=== PATIENT | male | born 1980 | race Two or more races ===

== ENCOUNTER 2024-11-05 16:33 | Emergency (ER) | payer SELFPAY | END 2024-11-05 16:57 | disposition left against medical advice (07) | LOC: ER 16:39 | DX: Z76.89 Persons encountering health services in other specified circumstances (principal); Z53.21 Procedure and treatment not carried out due to patient leaving prior to being seen by health care provider ==

== ENCOUNTER 2024-11-07 11:04 | Emergency (ER) | payer MEDICAID, OTHER ==
[~2024-11-07] VITALS: Ht 167.6 cm; Wt 65.0 kg
--- NOTE | 2024-11-07 12:43 | ED.PDOC ---
History of Present Illness HPI Comments 44-year-old male with no reported PMHx presents with a chief complaint of possible foreign body to left gluteal region x 5 days. Patient states that he may have a piece of wood splinter in his left gluteal region. Patient has a roughly 7x7cm erythematous area to the left gluteal. Chief Complaint: Foreign Body Time Seen by MD: 12:16 Primary Care Provider: NONE Reviewed Notes: Nurses Notes, Medications, Allergies Allergies: Coded Allergies: NO KNOWN ALLERGIES (Unverified , 11/07/24) Home Meds Active Scripts Naproxen (Naproxen) 500 Mg Tab, 500 MG PO [id number] PRN for 10 Days, #20 TAB 0 Refills Prov:TOMA BENSON NP 11/07/24 Cephalexin Monohydrate (Cephalexin) 500 Mg Cap, 1 CAP PO QID for 7 Days, #28 CAP 0 Refills Prov:TOMA BENSON NP 11/07/24 Sulfamethoxazole W/Trimethopri (Bactrim Ds Tablet) 1 Tab Tb, 1 TAB PO BID for 7 Days, #14 TAB 0 Refills Prov:TOMA BENSON NP 11/07/24 Information Source: Patient Mode of Arrival: Ambulatory Severity: Moderate Timing: Days Duration: Since onset Prehospital treatment: None Past Medical History PAST MEDICAL HISTORY: Denies Surgical History: Denies all surgeries Family History Family History: Reviewed,noncontributory to illness Social History Smoker: Non-Smoker Alcohol: Denies ETOH Use Drugs: Denies Drug Use Lives In: Home Constitutional: denies: chills, diaphoresis, fatigue, fever, malaise, sweats, weakness, others EENTM: denies: blurred vision, double vision, ear bleeding, ear discharge, ear drainage, ear pain, ear ringing, eye pain, eye redness, hearing loss, mouth pain, mouth swelling, nasal discharge, nose bleeding, nose congestion, nose pain, photophobia, tearing, throat pain, throat swelling, voice changes, others Respiratory: denies: cough, hemoptysis, orthopnea, SOB at rest, shortness of breath, SOB with excertion, stridor, wheezing, others Cardiovascular: denies: chest pain, dizzy spells, diaphoresis, Dyspnea on exert ion, edema, irregular heart beat, left arm pain, lightheadedness, palpitations, PND, syncope, others Gastrointestinal: denies: abdomen distended, abdominal pain, blood streaked bowels, constipated, diarrhea, dysphagia, difficulty swallowing, hematemesis, melena, nausea, poor appetite, poor fluid intake, rectal bleeding, rectal pain, vomiting, others Genitourinary: denies: burning, dysuria, flank pain, frequency, hematuria, incontinence, penile discharge, penile sore, pain, testicle pain, testicle swelling, urgency, others Neurological: denies: dizziness, fainting, headache, left sided numbness, left sided weakness, numbness, paresthesia, pre-existing deficit, right sided numbness, right sided weakness, seizure, speech problems, tingling, tremors, weakness, others Musculoskeletal: denies: back pain, gout, joint pain, joint swelling, muscle pain, muscle stiffness, neck pain, others Integumetry: reports: wounds; denies: bruises, change in color, change in hair/nails, dryness, laceration, lesions, lumps, rash, others Allergic/Immunocompromised: denies: Difficulty Healing, Frequent Infections, Hives, Itching, others Hematologic/Lymphatic: denies: anemia, blood clots, easy bleeding, easy bruising, swollen glands, others Endocrine: denies: excessive hunger, excessive sweating, excessive thirst, excessive urination, flushing, intolerance to cold, intolerance to heat, unexplained weight gain, unexplained weight loss, others Psychiatric: denies: anxiety, bipolar disorder, depression, hopeless, panic disorder, schizophrenia, sleepless, suicidal, others All Other Systems: Reviewed and Negative Physical Exam General Appearance: No Apparent Distress, Normal, Other (Round 7 x 7 cm erythematous region, TTP indurated, possible FB to midcenter left gluteal valencia on, no crepitous, drainage, or signs of streaking) HEENT: Normal ENT Inspection, Pharynx Normal, TMs Normal Neck: Full Range of Motion, Non-Tender, Normal, Normal Inspection Respiratory: Chest Non-Tender, Lungs Clear, No Accessory Muscle Use, No Respiratory Distress, Normal Breath Sounds Cardiovascular: No Edema, No JVD, No Murmur, No Gallop, Normal Peripheral Pulses, Regular Rate/Rhythm Breast Exam: Deferred Gastrointestinal: No Organomegaly, Non Tender, No Pulsatile Mass, Normal Bowel Sounds, Soft Genitalia: Deferred Pelvic: Deferred Rectal: Deferred Extremities: No calf tenderness, Normal capillary refill, Normal inspection, Normal range of motion, Non-tender, No pedal edema Musculoskeletal : Apperance: Normal 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 Was a procedure done?: No Differential Dx Considerations may include: abscess, cellulitis, erysipelas fb X-Ray, Labs, Meds, VS Vital Signs Date Time Temp Pulse Resp B/P (MAP) Pulse Ox O2 Delivery O2 Flow Rate FiO2 11/07/24 15:45 98.4 71 16 120/69 (86) 98 98.4 11/07/24 12:20 85 16 98 Room Air 11/07/24 12:20 98.1 85 16 124/72 (89) 98 98.1 11/07/24 11:22 98.1 85 16 124/72 (89) 98 98.1 Lab Test 11/07/24 12:49 Range/Units White Blood Count 12.1 H 4.4-10.8 10^3/uL Red Blood Count 4.71 4.5-5.90 10^6/uL Hemoglobin 14.7 13.5-17.5 g/dL Hematocrit 42.3 41.0-53.0 % Mean Corpuscular Volume 90.0 80.0-100.0 fL Mean Corpuscular Hemoglobin 31.2 28.0-32.0 pg Mean Corpuscular Hemoglobin Concent 34.7 32.0-36.0 g/dL Red Cell Distribution Width 14.2 11.8-14.3 % Platelet Count 241 140-450 10^3/uL Mean Platelet Volume 8.8 6.9-10.8 fL Neutrophils (%) (Auto) 79.4 37.0-80.0 % Lymphocytes (%) (Auto) 8.8 L 10.0-50.0 % Monocytes (%) (Auto) 8.7 0.0-12.0 % Eosinophils (%) (Auto) 2.8 0.0-7.0 % Basophils (%) (Auto) 0.3 0.0-2.0 % Neutrophils # (Auto) 9.6 H 1.6-8.6 10 ^3/uL Lymphocytes # (Auto) 1.1 0.4-5.4 10 ^3/uL Monocytes # (Auto) 1.0 0-1.3 10 ^3/uL Eosinophils # (Auto) 0.3 0-0.8 10 ^3/uL Basophils # (Auto) 0 0-0.2 10 ^3/uL Nucleated Red Blood Cells 0.0 % Sodium Level 139 136-145 mmol/L Potassium Level 4.1 3.5-5.1 mmol/L Chloride Level 105 98-107 mmol/L Carbon Dioxide Level 27 20-31 mmol/L Anion Gap 7 5-15 Blood Urea Nitrogen 13 9-23 mg/dL Creatinine 0.81 0.700-1.30 mg/dL Glomerular Filtration Rate Calc 112 >90 mL/min BUN/Creatinine Ratio 16.0 10.0-20.0 Serum Glucose 92 74-106 mg/dL Calcium Level 9.6 8.7-10.4 mg/dL Current Medications Medications (Trade) Dose Ordered Sig/Ellie Route Start Time Stop Time Status Last Admin Acetaminophen/ Hydrocodone Bitart ([place] 10/325MG Tab) 1 tab ONCE ONCE PO 11/07/24 13:30 11/07/24 13:31 DC 11/07/24 13:27 Ceftriaxone Sodium (Rocephin) 1,000 mg ONCE ONCE IM 11/07/24 15:00 11/07/24 15:01 DC 11/07/24 15:34 X-Ray, Labs, Meds, VS Comment 44-year-old male with no reported PMHx presents with a chief complaint of possible foreign body to left gluteal region x 5 days. Patient arrives alert and oriented, ABC's intact, afebrile, vital signs stable, saturating well in room air History and findings consistent with cellulitis. Given History, Exam, and Workup I have low suspicion for Necrotizing Fasciitis but also considered Abscess as a cause for this presentation. Labs ..ordered Imaging ordered: 1. Findings suggesting cellulitis in the subcutaneous tissues of the left gluteal tissues. 2. No drainable fluid collections. 3. No intraperitoneal masses or fluid collections. 4. All CT scans at this medical facility are performed using dose modulation techniques as appropriate to a performed exam including the following: Automated exposure control was utilized; adjustment of the MA and/or KV according to patient size; and use of iterative reconstruction technique. Ordered ABx x 1 Prescribed p.o. antibiotics for presentation of symptoms Complete course of antibiotic therapy even if symptoms improve or resolve. There should be no leftover antibiotics as this can lead to antibiotic resistant bacteria and even worse infection. Patient verbalized understanding. Potential side effects discussed with patient including abdominal pain, nausea, diarrhea. The patient was advised to return 24-48 hours for wound check. Sooner if symptoms worsen. Additional MDM Review of External, Non-ED records: External records reviewed. Discussion with independent historian (EMS, family) history obtained from the patient/parents (if applicable) at bedside Chronic conditions affecting care: None Social determinants of health affecting care: None Consideration of admission (observation or admission): I considered escalation of care to admission for this patient, however given the reassuring workup, the patient is safe for outpatient management. Time of 1ST Reevaluation: 12:46 Reevaluation 1ST: Unchanged Patient Education/Counseling: Diagnosis, Treatment, Prognosis Family Education/Counseling: No Family Present SEPSIS Sepsis Screen Date sepsis recognized/suspect: Nov 07, 2024 Time Sepsis recognized/suspect: 1122 Recent Procedure: No On Antibiotic Therapy: No Respiratory Rate >20: No Heart Rate >90: No Temp<36 C (96.8 F) or >38.3 C: No SBP <90 or MAP <65 mmHG: No New Acute Mental Status Change: No Is the patient on CPAP, BIPAP,: No Orders/Vitals/Labs Physician Orders Heplock Iv (11/07/24 ) Ct Ab Pel With Iv Con Only (11/07/24 13:35) Vital Signs Date Time Temp Pulse Resp B/P (MAP) Pulse Ox O2 Delivery O2 Flow Rate FiO2 11/07/24 15:45 98.4 71 16 120/69 (86) 98 98.4 11/07/24 12:20 85 16 98 Room Air 11/07/24 12:20 98.1 85 16 124/72 (89) 98 98.1 11/07/24 11:22 98.1 85 16 124/72 (89) 98 98.1 Laboratory Tests Test 11/07/24 12:49 White Blood Count 12.1 10^3/uL (4.4-10.8) H Departure 1 Departure Time of Disposition: 15:35 Impression: Primary Impression: Cellulitis Qualified Codes: L03.317 - Cellulitis of buttock Disposition: HOME / SELF CARE / HOMELESS Condition: Fair e-Prescriptions Naproxen (Naproxen) 500 Mg Tab 500 MG PO [id number] PRN for 10 Days, #20 TAB 0 Refills Prov: TOMA BENSON NP 11/07/24 Cephalexin Monohydrate (Cephalexin) 500 Mg Cap 1 CAP PO QID for 7 Days, #28 CAP 0 Refills Prov: TOMA BENSON NP 11/07/24 Sulfamethoxazole W/Trimethopri (Bactrim Ds Tablet) 1 Tab Tb 1 TAB PO BID for 7 Days, #14 TAB 0 Refills Prov: TOMA BENSON NP 11/07/24 Critical Care Note Critical Care Time?: No Stability Stability form required: No Heart Score Heart Score: Heart Score Response (Comments) Value History N/A 0 EKG N/A 0 Age N/A 0 Risk Factors N/A 0 Troponin N/A 0 Total 0 I personally scribed for TOMA BENSON NP ([email or web address]) on 11/07/24 at 12:43. Electronically submitted by Alberto Son ([email or web address]). TOMA BENSON NP Nov 07, 2024 12:43
[2024-11-07 13:12] LABS: Basophils # (auto) 0 10 ^3/uL (0-0.2); Basophils % (auto) 0.3 % (0.0-2.0); Eosinophils # (auto) 0.3 10 ^3/uL (0-0.8); Eosinophils % (auto) 2.8 % (0.0-7.0); Hematocrit 42.3 % (41.0-53.0); Hemoglobin 14.7 g/dL (13.5-17.5); Lymphocytes # (auto) 1.1 10 ^3/uL (0.4-5.4); Lymphocytes % (auto) 8.8 % (10.0-50.0); Mean Corpuscular Hemoglobin 31.2 pg (28.0-32.0); Mean Corpuscular Hgb Conc. 34.7 g/dL (32.0-36.0); Monocytes % (auto) 8.7 % (0.0-12.0); Neutrophils # (auto) 9.6 10 ^3/uL (1.6-8.6); Neutrophils % (auto) 79.4 % (37.0-80.0); Platelet Count (auto) 241 10^3/uL (140-450); Red Blood Cells 4.71 10^6/uL (4.5-5.90); Red Cell Distribution Width 14.2 % (11.8-14.3); White Blood Cell 12.1 10^3/uL (4.4-10.8)
[2024-11-07 13:22] LABS: Chloride 105 mmol/L (98-107); Potassium 4.1 mmol/L (3.5-5.1); Sodium 139 mmol/L (136-145)
[2024-11-07 13:23] LABS: Anion Gap 7 (5-15); Carbon Dioxide 27 mmol/L (20-31)
[2024-11-07 13:24] LABS: Calcium 9.6 mg/dL (8.7-10.4)
[2024-11-07] MEDS: HYDROcodone-ACET 10/325MG TAB PO ONE (13:27)
[2024-11-07 13:28] LABS: Blood Urea Nitrogen 13 mg/dL (9-23); Glucose 92 mg/dL (74-106)
[2024-11-07] MEDS: IOHEXOL 300 MG/ML 100ML BOTTLE IJ ONE (13:48)
--- NOTE | 2024-11-07 14:27 | DVH ---
Exam: CT CT AB PEL WITH IV CON ONLY History: Cellulitis to L gluteal region. 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 During the uneventful, intravenous administration of c ontrast material, multislice data acquisition was obtained through the abdomen and pelvis. The data s et was subsequently reconstructed into axial images. Images were reviewed on a work station using a c ombination of axial and multiplanar using a variety of window levels and settings. Radiation Dose Information: CT Dose: CTDI volume is 5.39 mGy. Dose-length product is 330.01 mGy*cm FINDINGS: Lung Bases: No acute or significant lung base finding. Normal heart size. No pleural or pericardial effusion. Liver: The liver is normal in size. No focal lesions. Normal hepatic vascular enhancement. Gallbladder and Biliary Tree: Unremarkable Spleen: Unremarkable Pancreas: The pancreas is normal in appearance without focal lesions or abnormal enhancement. Adrenal Glands: Unremarkable Kidneys: Kidneys demonstrate normal symmetric enhancement without focal lesions, calculi or hydroneph rosis. Bladder: Unremarkable Bowel: The stomach is grossly normal in appearance. Small bowel and colon are normal in caliber and d istribution. The appendix is not visualized; however, no secondary findings of acute appendicitis yana ntified. Ascites: Absent Lymphadenopathy: No mesenteric, retroperitoneal or periportal lymphadenopathy. Abdominal Wall and Mesentery: Unremarkable. Vasculature: The visualized abdominal aorta is normal in size and caliber. Abdominal and pelvic vess els demonstrate normal enhancement. Pelvic Organs: Unremarkable Musculoskeletal: No aggressive focal bony lesions, acute fractures or dislocation. Soft tissues: Edema in the subcutaneous fat of the left gluteal tissues. There is no central drainab le fluid collections no findings to suggest abscess. IMPRESSION: 1. Findings suggesting cellulitis in the subcutaneous tissues of the left gluteal tissues. 2. No drainable fluid collections. 3. No intraperitoneal masses or fluid collections. 4. All CT scans at this medical facility are performed using dose modulation techniques as appropriat e to a performed exam including the following: Automated exposure control was utilized; adjustment of the MA and/or KV according to patient size; and use of iterative reconstruction technique. HS:Y
[2024-11-07] MEDS: cefTRIAXone SOD 1,000 MG VL IM ONE (15:34)
[2024-11-07] MEDS ORDERED: NAPR-746 PO (15:36)
[2024-11-07] MEDS ORDERED: CEPH500C PO (15:36)
[2024-11-07] MEDS ORDERED: BACDST PO (15:36)
[2024-11-07 15:45] VITALS: BP 120/69; PULSE 71; RESP 16; TEMP 98.4; O2SAT 98
== END 2024-11-07 15:54 | disposition home or self-care (01) ==
LOC: ER 11:04
DX: L03.317 Cellulitis of buttock (principal)
CPT/HCPCS: 36415; 74177; 80048; 85025; 96372; 99285; J0696; Q9967

== ENCOUNTER 2024-11-09 09:51 | Inpatient (IN) | payer MEDICAID ==
[~2024-11-09] VITALS: Ht 180.3 cm; Wt 67.0 kg
[2024-11-09] MEDS: CLINDAMYCIN 600MG IV 50 ML IV SCH (00:36)
[~2024-11-09 09:51] MED LIST: BACDST PO; CEPH500C PO; NAPR-746 PO
[2024-11-09] MEDS: CEFEPIME 2GM/50ML NS 50 ML IV ONE (12:45)
[2024-11-09] MEDS: VANCOMYCIN 1GM/200ML PM 200 ML IV ONE (12:45)
[2024-11-09] MEDS: SODIUM CHLORIDE 0.9% 1,000 ML IV ONE (12:45)
--- NOTE | 2024-11-09 13:18 | ED.PDOC ---
History of Present Illness(SKN HPI Comments 44 year old male presents to the ED with a chief complaint of wound check onset today (11/09/24). Patient states he was seen in this ED on 11/07/24, had abscess from LT gluteal drained, was prescribed antibiotics and pain medication, was told to return in 2-3 days for a wound check. He has been compliant with medication, pain has improved. He was squeezing abscess last night, states there was large amount of drainage. Denies any PMHx as wellas fever, chills, headache, nausea, vomiting, diarrhea, chest pain, shortness of breath. No other symptoms or modifying factors present at this time. Chief Complaint: Body Pain Time Seen by MD: 12:20 Primary Care Provider: NONE History of Present Illness: Medications, Allergies Allergies: Coded Allergies: NO KNOWN ALLERGIES (Unverified , 11/07/24) Home Meds Active Scripts Naproxen (Naproxen) 500 Mg Tab, 500 MG PO [id number] PRN for 10 Days, #20 TAB 0 Refills Prov:TOMA BENSON NP 11/07/24 Cephalexin Monohydrate (Cephalexin) 500 Mg Cap, 1 CAP PO QID for 7 Days, #28 CAP 0 Refills Prov:TOMA BENSON NP 11/07/24 Sulfamethoxazole W/Trimethopri (Bactrim Ds Tablet) 1 Tab Tb, 1 TAB PO BID for 7 Days, #14 TAB 0 Refills Prov:TOMA BENSON NP 11/07/24 Information Source: Patient Mode of Arrival: Ambulatory Severity: Moderate Timing: Days Duration: Since onset Prehospital treatment: Pain Meds, Treatment (antibiotics) Location: Buttock (LT) Wound Type: Abscess Associated Signs and Symptoms: Pus Past Medical History PAST MEDICAL HISTORY: Denies Surgical History: Denies all surgeries Family History Family History: Reviewed,noncontributory to illness Social History Smoker: Non-Smoker Alcohol: Denies ETOH Use Drugs: Denies Drug Use Lives In: Home Constitutional: denies: chills, diaphoresis, fatigue, fever, malaise, sweats, weakness, others EENTM: denies: blurred vision, double vision, ear bleeding, ear discharge, ear drainage, ear pain, ear ringing, eye pain, eye redness, hearing loss, mouth pain, mouth swelling, nasal discharge, nose bleeding, nose congestion, nose pain, photophobia, tearing, throat pain, throat swelling, voice changes, others Respiratory: denies: cough, hemoptysis, orthopnea, SOB at rest, shortness of breath, SOB with excertion, stridor, wheezing, others Cardiovascular: denies: chest pain, dizzy spells, diaphoresis, Dyspnea on exertion, edema, irregular heart beat, left arm pain, lightheadedness, palpitations, PND, syncope, others Gastrointestinal: denies: abdomen distended, abdominal pain, blood streaked bowels, constipated, diarrhea, dysphagia, difficulty swallowing, hematemesis, melena, nausea, poor appetite, poor fluid intake, rectal bleeding, rectal pain, vomiting, others Genitourinary: denies: burning, dysuria, flank pain, frequency, hematuria, incontinence, penile discharge, penile sore, pain, testicle pain, testicle swelling, urgency, others Neurological: denies: dizziness, fainting, headache, left sided numbness, left sided weakness, numbness, paresthesia, pre-existing deficit, right sided numbness, right sided weakness, seizure, speech problems, tingling, tremors, weakness, others Musculoskeletal: denies: back pain, gout, joint pain, joint swelling, muscle pain, muscle stiffness, neck pain, others Integumetry: reports: others (LT buttock abscess); denies: bruises, change in color, change in hair/nails, dryness, laceration, lesions, lumps, rash, wounds Allergic/Immunocompromised: denies: Difficulty Healing, Frequent Infections, Hives, Itching, others Hematologic/Lymphatic: denies: anemia, blood clots, easy bleeding, easy bruising, swollen glands, others Endocrine: denies: excessive hunger, excessive sweating, excessive thirst, excessive urination, flushing, intolerance to cold, intolerance to heat, unexplained weight gain, unexplained weight loss, others Psychiatric: denies: anxiety, bipolar disorder, depression, hopeless, panic disorder, schizophrenia, sleepless, suicidal, others All Other Systems: Reviewed and Negative Physical Exam General Appearance: Normal HEENT: Normal ENT Inspection, Pharynx Normal, TMs Normal Neck: Full Range of Motion, Non-Tender, Normal, Normal Inspection Respiratory: Chest Non-Tender, Lungs Clear, No Accessory Muscle Use, No Respiratory Distress, Normal Breath Sounds Cardiovascular: No Edema, No JVD, No Murmur, No Gallop, Normal Peripheral Pulses, Regular Rate/Rhythm Breast Exam: Deferred Gastrointestinal: No Organomegaly, Non Tender, No Pulsatile Mass, Normal Bowel Sounds, Soft Genitalia: Deferred Pelvic: Deferred Rectal: Deferred Extremities: No calf tenderness, Normal capillary refill, No pedal edema Musculoskeletal : Apperance: Normal 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 Was a procedure done?: No Differential Diagnosis (INTG) Differential Diagnosis: Cellulitis, Hematoma Differential Diagnosis: Abscess Differential Diagnosis: N/A Abscess: N/A Differential Diagnosis: N/A X-Ray, Labs, Meds, VS Vital Signs Date Time Temp Pulse Resp B/P (MAP) Pulse Ox O2 Delivery O2 Flow Rate FiO2 11/09/24 13:39 98.1 60 17 112/73 (86) 99 98.1 11/09/24 10:19 98.0 70 16 160/82 (108) 99 98.0 Lab Test 11/09/24 14:05 Range/Units White Blood Count Pending Red Blood Count Pending Hemoglobin Pending Hematocrit Pending Mean Corpuscular Volume Pending Mean Corpuscular Hemoglobin Pending Mean Corpuscular Hemoglobin Concent Pending Red Cell Distribution Width Pending Platelet Count Pending Mean Platelet Volume Pending Neutrophils (%) (Auto) Pending Lymphocytes (%) (Auto) Pending Monocytes (%) (Auto) Pending Basophils (%) (Auto) Pending Neutrophils # (Auto) Pending Lymphocytes # (Auto) Pending Monocytes # (Auto) Pending Sodium Level Pending Potassium Level Pending Chloride Level Pending Carbon Dioxide Level Pending Anion Gap Pending Blood Urea Nitrogen Pending Creatinine Pending Glomerular Filtration Rate Calc Pending BUN/Creatinine Ratio Pending Serum Glucose Pending Lactic Acid Level Pending Calcium Level Pending Time of 1ST Reevaluation: 12:50 Reevaluation 1ST: Unchanged Patient Education/Counseling: Diagnosis, Treatment, Prognosis Family Education/Counseling: No Family Present SEPSIS Sepsis Screen Date sepsis recognized/suspect: Nov 09, 2024 Time Sepsis recognized/suspect: 1019 Recent Procedure: No On Antibiotic Therapy: No Respiratory Rate >20: No Heart Rate >90: No Temp<36 C (96.8 F) or >38.3 C: No SBP <90 or MAP <65 mmHG: No New Acute Mental Status Change: No Is the patient on CPAP, BIPAP,: No Physician Orders Wound Culture W/ Gs (11/09/24 12:41) Basic Metabolic Panel (11/09/24 12:41) Complete Blood Count (11/09/24 12:41) Lactic Acid W/ Reflex Order (11/09/24 12:41) Blood Culture (11/09/24 12:41) Cefepime 2gm/50ml Ns (Maxipime 2gm/50ml) (11/09/24 12:45) Vital Signs Date Time Temp Pulse Resp B/P (MAP) Pulse Ox O2 Delivery O2 Flow Rate FiO2 11/09/24 13:39 98.1 60 17 112/73 (86) 99 98.1 11/09/24 10:19 98.0 70 16 160/82 (108) 99 98.0 Laboratory Tests Test 11/09/24 14:05 Lactic Acid Level Pending White Blood Count Pending Departure 1 Departure Time of Disposition: 14:26 (Patient has worsening cellulitis of the left buttock. This is failed outpatient treatment. We will admit patient for further workup and expert consultation.) Impression: Primary Impression: Cellulitis of left buttock Disposition: ADMITTED INPATIENT Admit to: Med Surg Condition: Serious Critical Care Note Critical Care Time?: No Stability Stability form required: No I personally scribed for CULLEN GAN MD ([email or web address]) on 11/09/24 at 13:18. Electronically submitted by Ramona Metz ([email or web address]). CULLEN GAN MD Nov 09, 2024 13:18
[2024-11-09 14:31] LABS: Basophils # (auto) 0 10 ^3/uL (0-0.2); Basophils % (auto) 0.4 % (0.0-2.0); Eosinophils # (auto) 0.3 10 ^3/uL (0-0.8); Eosinophils % (auto) 3.7 % (0.0-7.0); Hematocrit 40.6 % (41.0-53.0); Hemoglobin 14.2 g/dL (13.5-17.5); Lymphocytes # (auto) 1.2 10 ^3/uL (0.4-5.4); Lymphocytes % (auto) 14.9 % (10.0-50.0); Mean Corpuscular Hemoglobin 31.5 pg (28.0-32.0); Monocytes # (auto) 0.7 10 ^3/uL (0-1.3); Monocytes % (auto) 8.7 % (0.0-12.0); Neutrophils # (auto) 5.9 10 ^3/uL (1.6-8.6); Neutrophils % (auto) 72.3 % (37.0-80.0); Nucleated Red Blood Cells % 0.1 %; Platelet Count (auto) 290 10^3/uL (140-450); Red Blood Cells 4.52 10^6/uL (4.5-5.90); Red Cell Distribution Width 13.8 % (11.8-14.3); White Blood Cell 8.1 10^3/uL (4.4-10.8)
[2024-11-09 14:34] LABS: Chloride 106 mmol/L (98-107); Potassium 4.1 mmol/L (3.5-5.1); Sodium 141 mmol/L (136-145)
[2024-11-09 14:35] LABS: Anion Gap 8 (5-15); Calcium 9.9 mg/dL (8.7-10.4); Carbon Dioxide 27 mmol/L (20-31)
[2024-11-09 14:40] LABS: Blood Urea Nitrogen 10 mg/dL (9-23); Glucose 92 mg/dL (74-106)
[2024-11-09] MEDS: PANTOPRAZOLE 40 MG/10 ML VIAL INJ IV SCH (16:45)
[2024-11-09] MEDS ORDERED: MORPHINE SULFATE INJ 2 MG/ml SYRG IV PRN (16:45)
[2024-11-09] MEDS ORDERED: HYDROcodone-ACET 5/325MG TAB PO PRN (16:45)
[2024-11-09] MEDS ORDERED: ACETAMINOPHEN 325 MG TAB PO PRN (16:45)
[2024-11-09] MEDS ORDERED: ONDANSETRON HCL 4 MG/2 ML VIAL IV PRN (16:45)
--- NOTE | 2024-11-09 16:50 | DVHHP2 ---
History of Present Illness Reason for Visit: Left gluteal pain History of Present Illness José Rivas is a 44-year-old male with past medical history of gastritis, migraines, and hernia repair who presents to the ED with left gluteal pain due to a wound x5 days. Patient reports that he has he seen seen here recently last week with the same issue. Patient states that there is brown drainage coming out. He states that the pain is 5/10 aching and constant. Patient denies any recent trauma or injury, recent sick contacts, recent ingestion of spoiled food, recent travels, chest pain, shortness of breath, fever, chills, lightheadedness, weakness, dizziness, nausea, vomiting, diarrhea, or abdominal pain. GI: Gastritis Past Medical History Migraines Past Surgical History: Hernia Repair Family History: None Smoke: No ALCOHOL: none Drugs: None Lives: Alone Domestic Violence: Neg Review of Systems Musculoskeletal: other (Left gluteal pain) Allergies: Coded Allergies: NO KNOWN ALLERGIES (Unverified , 11/07/24) Exam Vital Signs Vital Signs Date Time Temp Pulse Resp B/P (MAP) Pulse Ox O2 Delivery O2 Flow Rate FiO2 11/09/24 13:39 98.1 60 17 112/73 (86) 99 98.1 General Appearance: Alert, Oriented X3, Cooperative, No acute distress HEENT: Atraumatic, PERRLA, EOMI, Mucous membr. moist/pink Respiratory: Clear to auscultation, Normal air movement Cardiovascular: Regular rate, Normal S1, Normal S2, No murmurs Abdominal: Normal bowel sounds, Soft, No tenderness, No hepatospenomegaly, No masses Extremities: No edema, Normal pulses Neuro: Normal gait, Normal speech, Strength at 5/5 X4 ext, Normal tone, Sensation intact Psych/Mental Status: Mental status NL, Mood NL Labs/Xrays Labs Test 11/09/24 14:05 Range/Units White Blood Count 8.1 # 4.4-10.8 10^3/uL Red Blood Count 4.52 4.5-5.90 10^6/uL Hemoglobin 14.2 13.5-17.5 g/dL Hematocrit 40.6 L 41.0-53.0 % Mean Corpuscular Volume 90.0 80.0-100.0 fL Mean Corpuscular Hemoglobin 31.5 28.0-32.0 pg Mean Corpuscular Hemoglobin Concent 35.0 32.0-36.0 g/dL Red Cell Distribution Width 13.8 11.8-14.3 % Platelet Count 290 140-450 10^3/uL Mean Platelet Volume 8.6 6.9-10.8 fL Neutrophils (%) (Auto) 72.3 37.0-80.0 % Lymphocytes (%) (Auto) 14.9 10.0-50.0 % Monocytes (%) (Auto) 8.7 0.0-12.0 % Eosinophils (%) (Auto) 3.7 0.0-7.0 % Basophils (%) (Auto) 0.4 0.0-2.0 % Neutrophils # (Auto) 5.9 1.6-8.6 10 ^3/uL Lymphocytes # (Auto) 1.2 0.4-5.4 10 ^3/uL Monocytes # (Auto) 0.7 0-1.3 10 ^3/uL Eosinophils # (Auto) 0.3 0-0.8 10 ^3/uL Basophils # (Auto) 0 0-0.2 10 ^3/uL Nucleated Red Blood Cells 0.1 % Sodium Level 141 136-145 mmol/L Potassium Level 4.1 3.5-5.1 mmol/L Chloride Level 106 98-107 mmol/L Carbon Dioxide Level 27 20-31 mmol/L Anion Gap 8 5-15 Blood Urea Nitrogen 10 9-23 mg/dL Creatinine 0.91 0.700-1.30 mg/dL Glomerular Filtration Rate Calc 107 >90 mL/min BUN/Creatinine Ratio 11.0 10.0-20.0 Serum Glucose 92 74-106 mg/dL Lactic Acid Level 0.8 0.4-2.0 mmol/L Calcium Level 9.9 8.7-10.4 mg/dL Assessment/Plan Assessment/Plan Assessment Left gluteal abscess versus cellulitis History of gastritis History of migraines History of hernia repair Plan Admit to med surge NS 1 L given in ED IV antibiotics-clindamycin Vancomycin + cefepime given in ED Blood cultures Lactic level Wound culture UA Antiemetics Pain management CT pelvis ordered Diet Patient reports no home medications taken DVT prophylaxis-SCDs PUD prophylaxis-PPIs Discussed plan of care with patient and nurse Plan discussed with: Patient My Orders Orders - EUGENE MACIAS CAD LIBRARIAN Procedure Category Date Status Time Urinalysis LAB 11/09/24 Logged 15:08 Clindamycin 600mg Iv PHA 11/09/24 Logged (Cleocin Iv) 16:45 Admit ADMIT 11/09/24 Transmitted 16:36 Allergies FELICITA 11/09/24 In Process 16:36 Code Status CODE 11/09/24 Transmitted 16:36 Hydrocodone-Acet PHA 11/09/24 Logged 5/325mg Tab ([place] 16:45 Ondansetron Hcl PHA 11/09/24 Logged (Zofran) 16:45 Complete Blood Count LAB 11/10/24 Verified 04:00 Comprehensive LAB 11/10/24 Verified Metabolic Panel 04:00 Cardiac DIET 11/09/24 Transmitted Diet-2gna,Lofat,Lochol Dinner Acetaminophen Tablet PHA 11/09/24 Logged (Tylenol Tablet) 16:45 Morphine Sulfate PHA 11/09/24 Logged Injection 16:45 Sequential FELICITA 11/09/24 In Process Compression Device Date of Service: Nov 09, 2024 Billing Provider: EUGENE MACIAS Common Visit Codes: [id number] INP/OBS CARE (HIGH) EUGENE MACIAS Nov 09, 2024 16:50
--- NOTE | 2024-11-09 17:35 | DVH ---
Exam: CT PELVIS WO CONTRAST History: left gluteal abscess rule out Comparison Study: None Technique: Multidetector CT of the pelvis was performed from iliac crests to pubic symphysis after th e administration of intravenous contrast was administered during this examination. Portal venous imag ing was obtained. Axial, coronal and sagittal multiplanar reformats were performed by the [employer] t on a separate workstation. Radiation Dose : CT Dose: CTDI volume is 8.59 mGy. Dose-length product is 309.34 mGy*cm Findings: Visualized bowel: No bowel wall thickening or dilatation. Ascites: Absent Lymphadenopathy: No pelvic or mesenteric lymphadenopathy. Vasculature: The visualized abdominal aorta is normal in size and caliber. Abdominal and pelvic vesse ls demonstrate normal enhancement. Pelvic Organs: Unremarkable Musculoskeletal: No acute osseous abnormality. Bladder: Unremarkable Mild soft tissue swelling in the subcutaneous fat of the left gluteal muscle with no fluid collection s or findings to suggest abscess. Subcutaneous tissue measures proximally 2 cm on the left than proxi raza 15 mm on the right.. IMPRESSION: 1. No findings of gluteal abscess. 2. Mild subcutaneous edema left gluteal muscle. Measures proximally 20 mm on the left than 15 mm on t he right. There is no drainable fluid collections on the left. All CT scans at this medical facility are performed using dose modulation techniques as appropriate t o a performed exam including the following: Automated exposure control was utilized; adjustment of th e MA and/or KV according to patient size; and use of iterative reconstruction technique. HS:Y
[2024-11-09 17:50] LABS: Urine Bacteria None Seen /hpf (None Seen)
[2024-11-09 18:05] LABS: Urine Blood 2+ /uL (Negative); Urine Clarity Clear (Clear); Urine Color Light-Yellow (Yellow); Urine Protein, UAD Negative (Negative); Urine Specific Gravity 1.013 (1.001-1.035); Urine Squamous Epithelial Cell None Seen /hpf (<5); Urine Urobilinogen Normal (Negative); Urine WBC < 1 /HPF (0-3); Urine pH 6.5 (5.0-9.0)
[2024-11-09 22:00] VITALS: BP 124/72; PULSE 70; RESP 18; TEMP 97.8; O2SAT 92
[2024-11-09 22:20] VITALS: BP 124/72; PULSE 70; RESP 18; TEMP 97.8; O2SAT 99
[2024-11-09 22:25] VITALS: BP 124/72; PULSE 70; RESP 18; TEMP 97.8; O2SAT 99
[2024-11-10] VITALS (7 sets, daily range): BP systolic 97–124; BP diastolic 55–91; PULSE 55–75; RESP 18–20; TEMP 97.6–98.5; O2SAT 97–100
[2024-11-10 07:08] LABS: Basophils # (auto) 0 10 ^3/uL (0-0.2); Basophils % (auto) 0.6 % (0.0-2.0); Eosinophils # (auto) 0.4 10 ^3/uL (0-0.8); Eosinophils % (auto) 5.8 % (0.0-7.0); Hematocrit 39.4 % (41.0-53.0); Hemoglobin 13.5 g/dL (13.5-17.5); Lymphocytes # (auto) 1.2 10 ^3/uL (0.4-5.4); Lymphocytes % (auto) 19.2 % (10.0-50.0); Mean Corpuscular Hemoglobin 30.8 pg (28.0-32.0); Mean Corpuscular Hgb Conc. 34.3 g/dL (32.0-36.0); Mean Corpuscular Volume 89.7 fL (80.0-100.0); Monocytes # (auto) 0.7 10 ^3/uL (0-1.3); Monocytes % (auto) 12.1 % (0.0-12.0); Neutrophils # (auto) 3.8 10 ^3/uL (1.6-8.6); Neutrophils % (auto) 62.3 % (37.0-80.0); Platelet Count (auto) 284 10^3/uL (140-450); White Blood Cell 6.1 10^3/uL (4.4-10.8)
[2024-11-10 07:22] LABS: Alanine Aminotransferase 30 U/L (7-40); Albumin 3.8 g/dL (3.2-4.8); Alkaline Phosphatase 69 U/L (46-116); Anion Gap 9 (5-15); Aspartate Aminotransferase 28 U/L (<34); BUN/Creatinine Ratio 10.1 (10.0-20.0); Bilirubin, Total 0.3 mg/dL (0.2-1.0); Blood Urea Nitrogen 10 mg/dL (9-23); Calcium 9.4 mg/dL (8.7-10.4); Carbon Dioxide 26 mmol/L (20-31); Glucose 88 mg/dL (74-106); Potassium 4.3 mmol/L (3.5-5.1); Sodium 143 mmol/L (136-145); Total Protein 6.1 g/dL (5.7-8.2)
[2024-11-10 07:26] LABS: Chloride 108 mmol/L (98-107)
--- NOTE | 2024-11-10 14:43 | DVHPN2 ---
Subjective Patient denies any symptoms at this time. Reviewed: Care Plan, H&P, Labs, Medications Changes from previous H/P or p: No Changes General: Per HPI Musculoskeletal: other (Left gluteal pain) Objective Vitals Vital Signs Date Time Temp Pulse Resp B/P (MAP) Pulse Ox O2 Delivery O2 Flow Rate FiO2 11/10/24 12:24 97.8 61 20 105/61 (76) 99 97.8 11/10/24 08:00 Room Air* 0 21 Intake/Output Intake and Output 11/10/24 07:00 Intake Total 350 ml Balance 350 ml Intake Oral 250 ml IV Total 100 ml General Appearance: Alert, Oriented X3, Cooperative, No acute distress HEENT: Atraumatic, PERRLA Lungs: Clear to auscultation, Normal air movement Cardiovascular: Normal S1, Normal S2 Abdomen: Normal bowel sounds, Soft, No tenderness, No hepatospenomegaly Rectal: Normal inspection Back: Flank Tenderness, Midline Tenderness Skin: Dry, Intact Psych/Mental Status: Mental status NL, Mood NL Medications Current Medications Medications Dose Ordered Sig/Ellie Route Start Time Stop Time Status Last Admin Dose Admin Clindamycin Phosphate 50 ml @ 50 mls/hr Q8HR IV 11/09/24 16:45 11/10/24 13:10 50 MLS/HR Acetaminophen/ Hydrocodone Bitart 1 tab Q4HP PRN PO 11/09/24 16:45 Ondansetron HCl 4 mg Q4HP PRN IV 11/09/24 16:45 Acetaminophen 650 mg Q6HP PRN PO 11/09/24 16:45 Morphine Sulfate 2 mg Q4HPRN PRN IV 11/09/24 16:45 Pantoprazole Sodium 40 mg DAILY IV 11/09/24 16:45 11/10/24 10:11 40 MG Laboratory Results Laboratory Tests 11/10/24 05:39 Chemistry Test 11/10/24 05:39 Albumin 3.8 g/dL (3.2-4.8) Calcium Level 9.4 mg/dL (8.7-10.4) Total Protein 6.1 g/dL (5.7-8.2) LFT Test 11/10/24 05:39 Alanine Aminotransferase (ALT) 30 U/L (7-40) Alkaline Phosphatase 69 U/L (46-116) Aspartate Amino Transferase (AST) 28 U/L (<34) Total Bilirubin 0.3 mg/dL (0.2-1.0) Urinalysis Test 11/09/24 17:29 Urine Color Light-yellow (Yellow) Urine Clarity Clear (Clear) Urine pH 6.5 (5.0-9.0) Urine Specific [place] 1.013 (1.001-1.035) Urine Protein Negative (Negative) Urine Ketones Negative (Negative) Urine Blood 2+ /uL (Negative) H Urine Nitrite Negative (Negative) Urine Bilirubin Negative (Negative) Urine Urobilinogen Normal mg/dL (Negative) Urine Leukocyte Esterase Negative /uL (Negative) Urine RBC 25 /hpf (0 - 3) Urine Microscopic WBC < 1 /HPF (0-3) Urine Squamous Epithelial Cells None seen /hpf (<5) Urine Bacteria None seen /hpf (None Seen) Urine Glucose Normal mg/dL (Normal) Microbiology Microbiology Date/Time Source Procedure Growth Status 11/09/24 14:05 Blood Blood Culture - Preliminary NO GROWTH AFTER 24 HOURS OF INCUBATION. Resulted Labs and/or images reviewed: Labs reviewed by me, Image(s) reviewed by me Assessment/Plan Assessment/Plan Impression: -right gluteal abscess Plan: -right gluteal wound was assessed. Large indurated area with erythema. Pressure placed on site with noted pustulant drainage coming from open area. -surgical consultation -continue antibiotic therapy with Rocephin and clindamycin -pain management Total time spent with patient discussing and formulating plan of care: 35 minutes. This medical document was created using an electronic medical record system with [employer] dictation system. Although this document has been carefully reviewed, there may still be some phonetic and typographical errors. These areas are purely typographical due to imperfections of the software programs, and do not reflect any compromise in the patient's medical care. Plan discussed with: Patient, Other (RN) My Orders Orders - PHIL LIZARRAGA NP Procedure Category Date Status Time Cover Wound With Dry FELICITA 11/10/24 In Process Dressing 11:07 * Dietary Consult CONS 11/10/24 Transmitted 14:16 * Surgical Consult CONS 11/10/24 Verified Florastor (S. PHA 11/11/24 Verified Boulardii) (Florastor) 10:00 Ceftriaxone Ivpb PHA 11/11/24 Verified Rocephin 10:00 Basic Metabolic Panel LAB 11/11/24 Verified 04:00 PTPTT LAB 11/11/24 Verified 04:00 Date of Service: Nov 10, 2024 Billing Provider: PHIL LIZARRAGA NP Common Visit Codes: [id number] INP/OBS CARE(HIGH) PHIL LIZARRAGA NP Nov 10, 2024 14:43
[2024-11-11 05:00] VITALS: BP 95/54; PULSE 61; RESP 18; TEMP 97.6; O2SAT 98
[2024-11-11 08:12] LABS: Basophils # (auto) 0 10 ^3/uL (0-0.2); Basophils % (auto) 0.4 % (0.0-2.0); Eosinophils # (auto) 0.4 10 ^3/uL (0-0.8); Eosinophils % (auto) 5.3 % (0.0-7.0); Hematocrit 42.3 % (41.0-53.0); Hemoglobin 14.4 g/dL (13.5-17.5); Lymphocytes # (auto) 1.4 10 ^3/uL (0.4-5.4); Lymphocytes % (auto) 18.3 % (10.0-50.0); Mean Corpuscular Hemoglobin 30.7 pg (28.0-32.0); Mean Corpuscular Volume 90.3 fL (80.0-100.0); Monocytes # (auto) 0.7 10 ^3/uL (0-1.3); Neutrophils # (auto) 4.9 10 ^3/uL (1.6-8.6); Nucleated Red Blood Cells % 0.1 %; Platelet Count (auto) 310 10^3/uL (140-450); Red Blood Cells 4.69 10^6/uL (4.5-5.90); Red Cell Distribution Width 13.7 % (11.8-14.3); White Blood Cell 7.4 10^3/uL (4.4-10.8)
[2024-11-11 08:24] LABS: Anion Gap 8 (5-15); Carbon Dioxide 26 mmol/L (20-31); Chloride 107 mmol/L (98-107); Potassium 4.3 mmol/L (3.5-5.1); Sodium 141 mmol/L (136-145)
[2024-11-11 08:25] LABS: Calcium 9.9 mg/dL (8.7-10.4)
[2024-11-11 08:30] LABS: BUN/Creatinine Ratio 11.5 (10.0-20.0); Blood Urea Nitrogen 11 mg/dL (9-23); Glucose 84 mg/dL (74-106)
[2024-11-11 08:31] LABS: INR 1.03 (0.9-1.15); Partial Thromboplastin Time 31.8 SEC (24.5-34.5); Prothrombin Time 10.9 sec (9.3-11.8)
[2024-11-11 09:00] VITALS: BP 105/62; PULSE 64; RESP 19; TEMP 97.8; O2SAT 98
[2024-11-11] MEDS: FLORASTOR (S. BOULARDII) 250 MG CAP PO SCH (09:32)
[2024-11-11] MEDS: cefTRIAXone 2GM/50ML D5W 50 ML IV SCH (09:32)
--- NOTE | 2024-11-11 12:35 | DVHPN2 ---
Subjective Patient denies any symptoms at this time. Reviewed: Care Plan, H&P, Labs, Medications Changes from previous H/P or p: No Changes General: Per HPI Musculoskeletal: other (Left gluteal pain) Objective Vitals Vital Signs Date Time Temp Pulse Resp B/P (MAP) Pulse Ox O2 Delivery O2 Flow Rate FiO2 11/11/24 09:00 97.8 64 19 105/62 (76) 98 97.8 11/11/24 08:00 Room Air* 0 21 Intake/Output Intake and Output 11/11/24 07:00 Intake Total 1000 ml Balance 1000 ml Intake Oral 900 ml IV Total 100 ml # Voids 5 General Appearance: Alert, Oriented X3, Cooperative, No acute distress HEENT: Atraumatic, PERRLA Lungs: Clear to auscultation, Normal air movement Cardiovascular: Normal S1, Normal S2 Abdomen: Normal bowel sounds, Soft, No tenderness, No hepatospenomegaly Rectal: Normal inspection Back: Flank Tenderness, Midline Tenderness Skin: Dry, Intact Psych/Mental Status: Mental status NL, Mood NL Medications Current Medications Medications Dose Ordered Sig/Ellie Route Start Time Stop Time Status Last Admin Dose Admin Clindamycin Phosphate 50 ml @ 50 mls/hr Q8HR IV 11/09/24 16:45 11/11/24 05:34 50 MLS/HR Acetaminophen/ Hydrocodone Bitart 1 tab Q4HP PRN PO 11/09/24 16:45 Ondansetron HCl 4 mg Q4HP PRN IV 11/09/24 16:45 Acetaminophen 650 mg Q6HP PRN PO 11/09/24 16:45 Morphine Sulfate 2 mg Q4HPRN PRN IV 11/09/24 16:45 Pantoprazole Sodium 40 mg DAILY IV 11/09/24 16:45 11/11/24 09:32 40 MG Saccharomyces Boulardii 250 mg DAILY PO 11/11/24 10:00 11/11/24 09:32 250 MG Ceftriaxone Sodium/Dextrose 50 ml @ 50 mls/hr DAILY IV 11/11/24 10:00 11/11/24 09:32 50 MLS/HR Laboratory Results Laboratory Tests 11/11/24 06:55 Chemistry Test 11/11/24 06:55 Calcium Level 9.9 mg/dL (8.7-10.4) Coagulation Test 11/11/24 06:55 Prothrombin Time 10.9 sec (9.3-11.8) Prothrombin Time INR 1.03 (0.9-1.15) Activated Partial Thromboplast Time 31.8 SEC (24.5-34.5) Urinalysis Test 11/09/24 17:29 Urine Color Light-yellow (Yellow) Urine Clarity Clear (Clear) Urine pH 6.5 (5.0-9.0) Urine Specific [place] 1.013 (1.001-1.035) Urine Protein Negative (Negative) Urine Ketones Negative (Negative) Urine Blood 2+ /uL (Negative) H Urine Nitrite Negative (Negative) Urine Bilirubin Negative (Negative) Urine Urobilinogen Normal mg/dL (Negative) Urine Leukocyte Esterase Negative /uL (Negative) Urine RBC 25 /hpf (0 - 3) Urine Microscopic WBC < 1 /HPF (0-3) Urine Squamous Epithelial Cells None seen /hpf (<5) Urine Bacteria None seen /hpf (None Seen) Urine Glucose Normal mg/dL (Normal) Microbiology Microbiology Date/Time Source Procedure Growth Status 11/10/24 05:30 Nose MRSA Screen - Final Complete 11/09/24 14:05 Blood Blood Culture - Preliminary NO GROWTH AFTER 24 HOURS OF INCUBATION. Resulted Labs and/or images reviewed: Labs reviewed by me, Image(s) reviewed by me Assessment/Plan Assessment/Plan Impression: -right gluteal abscess, growth of Staphylococcus aureus Plan: -right gluteal wound was assessed. Large indurated area with erythema. Pressure placed on site with noted pustulant drainage coming from open area. -surgical consultation: pending -continue antibiotic therapy with Rocephin and clindamycin -pain management Total time spent with patient discussing and formulating plan of care: 35 minutes. This medical document was created using an electronic medical record system with [employer] dictation system. Although this document has been carefully reviewed, there may still be some phonetic and typographical errors. These areas are purely typographical due to imperfections of the software programs, and do not reflect any compromise in the patient's medical care. Plan discussed with: Patient, Other (RN) My Orders Orders - PHIL LIZARRAGA HEEL SANDER RUBBER Procedure Category Date Status Time Cover Wound With Dry FELICITA 11/10/24 In Process Dressing 11:07 * Dietary Consult CONS 11/10/24 Transmitted 14:16 Florastor (S. PHA 11/11/24 In Process Boulardii) (Florastor) 10:00 Ceftriaxone 2gm/50ml PHA 11/11/24 In Process D5w (Rocephin 2gm/5 10:00 Notify Provider NOTICE 11/11/24 Transmitted Malnutrition 10:51 Nutritional NOURISH 11/11/24 Transmitted Supplements 10:51 Dietary NOTICE 11/11/24 Transmitted Recommendations 10:51 * Surgical Consult CONS 11/11/24 Transmitted 12:27 Complete Blood Count LAB 11/12/24 Verified 04:00 Date of Service: Nov 11, 2024 Billing Provider: PHIL LIZARRAGA NP Common Visit Codes: [id number] INP/OBS CARE(HIGH) PHIL LIZARRAGA NP Nov 11, 2024 12:35
[2024-11-11 13:00] VITALS: BP 107/72; PULSE 71; RESP 18; TEMP 98.3; O2SAT 98
[2024-11-11 17:00] VITALS: BP 105/71; PULSE 65; RESP 18; TEMP 98.5; O2SAT 98
--- NOTE | 2024-11-11 17:19 | DVHINCON2 ---
Date of service: Nov 11, 2024 Family History: Patient reports no known family medical history. Allergies: Coded Allergies: NO KNOWN ALLERGIES (Unverified , 11/07/24) Home Meds Active Scripts Naproxen (Naproxen) 500 Mg Tab, 500 MG PO [id number] PRN for 10 Days, #20 TAB 0 Refills Prov:TOMA BENSON PRINCIPAL PROCESS ENGINEER 11/07/24 Cephalexin Monohydrate (Cephalexin) 500 Mg Cap, 1 CAP PO QID for 7 Days, #28 CAP 0 Refills Prov:TOMA BENSON PRINCIPAL PROCESS ENGINEER 11/07/24 Sulfamethoxazole W/Trimethopri (Bactrim Ds Tablet) 1 Tab Tb, 1 TAB PO BID for 7 Days, #14 TAB 0 Refills Prov:TOMA BENSON PRINCIPAL PROCESS ENGINEER 11/07/24 Current Medications Current Medications Medications (Trade) Dose Ordered Sig/Ellie Route PRN Reason Start Time Stop Time Status Last Admin Saccharomyces Boulardii (Florastor) 250 mg DAILY PO 11/11/24 10:00 11/11/24 09:32 Ceftriaxone Sodium/Dextrose 50 ml @ 50 mls/hr DAILY IV 11/11/24 10:00 11/11/24 09:32 Vital Signs Vital Signs Date Time Temp Pulse Resp B/P (MAP) Pulse Ox O2 Delivery O2 Flow Rate FiO2 11/11/24 13:00 98.3 71 18 107/72 (84) 98 98.3 11/11/24 08:00 Room Air* 0 21 Labs/Diagnostic Data Labs Test 11/11/24 06:55 11/10/24 05:39 11/09/24 17:29 11/09/24 14:05 Range/Units White Blood Count 7.4 4.4-10.8 10^3/uL Red Blood Count 4.69 4.5-5.90 10^6/uL Hemoglobin 14.4 13.5-17.5 g/dL Hematocrit 42.3 41.0-53.0 % Mean Corpuscular Volume 90.3 80.0-100.0 fL Mean Corpuscular Hemoglobin 30.7 28.0-32.0 pg Mean Corpuscular Hemoglobin Concent 34.0 32.0-36.0 g/dL Red Cell Distribution Width 13.7 11.8-14.3 % Platelet Count 310 140-450 10^3/uL Mean Platelet Volume 8.9 6.9-10.8 fL Neutrophils (%) (Auto) 66.0 37.0-80.0 % Lymphocytes (%) (Auto) 18.3 10.0-50.0 % Monocytes (%) (Auto) 10.0 0.0-12.0 % Eosinophils (%) (Auto) 5.3 0.0-7.0 % Basophils (%) (Auto) 0.4 0.0-2.0 % Neutrophils # (Auto) 4.9 1.6-8.6 10 ^3/uL Lymphocytes # (Auto) 1.4 0.4-5.4 10 ^3/uL Monocytes # (Auto) 0.7 0-1.3 10 ^3/uL Eosinophils # (Auto) 0.4 0-0.8 10 ^3/uL Basophils # (Auto) 0 0-0.2 10 ^3/uL Nucleated Red Blood Cells 0.1 % Prothrombin Time 10.9 9.3-11.8 sec Prothrombin Time INR 1.03 0.9-1.15 Activated Partial Thromboplast Time 31.8 24.5-34.5 SEC Sodium Level 141 136-145 mmol/L Potassium Level 4.3 3.5-5.1 mmol/L Chloride Level 107 98-107 mmol/L Carbon Dioxide Level 26 20-31 mmol/L Anion Gap 8 5-15 Blood Urea Nitrogen 11 9-23 mg/dL Creatinine 0.96 0.700-1.30 mg/dL Glomerular Filtration Rate Calc 101 >90 mL/min BUN/Creatinine Ratio 11.5 10.0-20.0 Serum Glucose 84 74-106 mg/dL Calcium Level 9.9 8.7-10.4 mg/dL Total Bilirubin 0.3 0.2-1.0 mg/dL Aspartate Amino Transferase (AST) 28 <34 U/L Alanine Aminotransferase (ALT) 30 7-40 U/L Alkaline Phosphatase 69 46-116 U/L Total Protein 6.1 5.7-8.2 g/dL Albumin 3.8 3.2-4.8 g/dL Urine Color Light-yellow Yellow Urine Clarity Clear Clear Urine pH 6.5 5.0-9.0 Urine Specific [place] 1.013 1.001-1.035 Urine Protein Negative Negative Urine Ketones Negative Negative Urine Blood 2+ H Negative /uL Urine Nitrite Negative Negative Urine Bilirubin Negative Negative Urine Urobilinogen Normal Negative mg/dL Urine Leukocyte Esterase Negative Negative /uL Urine RBC 25 0 - 3 /hpf Urine Microscopic WBC < 1 0-3 /HPF Urine Squamous Epithelial Cells None seen <5 /hpf Urine Bacteria None seen None Seen /hpf Urine Glucose Normal Normal mg/dL Lactic Acid Level 0.8 0.4-2.0 mmol/L Microbiology Date/Time Source Procedure Growth Status 11/10/24 05:30 Nose MRSA Screen - Final Complete 11/09/24 14:05 Blood Blood Culture - Preliminary NO GROWTH AFTER 48 HOURS OF INCUBATION. Resulted Assessment [id number] AFEBRILE VSS R/O LEFT GLUTEAL ABSCESS CONSIDER EMERGENT I/D ABOVE BASED ON ONGOING EVAL Plan discussed with: Other COREY JOHNSON MD Nov 11, 2024 17:19
--- NOTE | 2024-11-11 19:44 | DVHINCON2 ---
DATE OF CONSULTATION: 11/11/2024 HISTORY OF PRESENT ILLNESS: This patient is 44 years old, coming in with drainage, nonhealing wound, left buttock. Details of that are not clear. Based upon the interpretation, he has had this for a while and now it started to drain. No fever or chills. No nausea or vomiting. No constipation or diarrhea. No hematemesis or melena. No bleeding per rectum. PAST MEDICAL HISTORY: No diabetes or hypertension. PAST SURGICAL HISTORY: No significant surgical history. PHYSICAL EXAMINATION: VITAL SIGNS: Afebrile. Stable signs. HEENT: With no evidence of pallor, cyanosis or jaundice. NECK: Supple and nontender with no thyromegaly or lymphadenopathy. CHEST AND LUNGS: Clear. HEART: Within normal limits. ABDOMEN: Soft. EXTREMITIES: Unremarkable. NEUROLOGIC: Not assessed. CLINICAL IMPRESSION: Pelvic CT shows subcutaneous edema of the left gluteal muscle and there is no renal collection on the left side. PLAN: The plan would be to consider incision and drainage of this left gluteal abscess/collection. Benefits were discussed and consent obtained. MD RAFAEL Reyes/RIMMA TID: [id number] RECEIPT: [id number] cc: Jeison Dorantes NP
[2024-11-11 21:00] VITALS: BP 111/78; PULSE 61; RESP 18; TEMP 98.5; O2SAT 98
[2024-11-12] VITALS (7 sets, daily range): BP systolic 99–113; BP diastolic 57–78; PULSE 56–68; RESP 12–18; TEMP 97.3–98.5; O2SAT 94–99
[2024-11-12 07:46] LABS: Basophils # (auto) 0.1 10 ^3/uL (0-0.2); Basophils % (auto) 0.8 % (0.0-2.0); Eosinophils # (auto) 0.4 10 ^3/uL (0-0.8); Eosinophils % (auto) 5.5 % (0.0-7.0); Hematocrit 44.5 % (41.0-53.0); Hemoglobin 15.6 g/dL (13.5-17.5); Lymphocytes # (auto) 1.5 10 ^3/uL (0.4-5.4); Lymphocytes % (auto) 22.6 % (10.0-50.0); Mean Corpuscular Volume 88.6 fL (80.0-100.0); Monocytes # (auto) 0.6 10 ^3/uL (0-1.3); Monocytes % (auto) 9.6 % (0.0-12.0); Neutrophils # (auto) 4.1 10 ^3/uL (1.6-8.6); Neutrophils % (auto) 61.5 % (37.0-80.0); Nucleated Red Blood Cells % 0.1 %; Platelet Count (auto) 330 10^3/uL (140-450); Red Blood Cells 5.03 10^6/uL (4.5-5.90); Red Cell Distribution Width 13.5 % (11.8-14.3); White Blood Cell 6.6 10^3/uL (4.4-10.8)
[2024-11-12] MEDS ORDERED: KETAMINE 50mg/ML 1ml syringe ONE (10:51)
[2024-11-12] MEDS ORDERED: ONDANSETRON HCL 4 MG/2 ML VIAL ONE (10:52)
[2024-11-12] MEDS ORDERED: PROPOFOL 10 MG/ML 20 ML IV ONE (10:52)
[2024-11-12] MEDS ORDERED: KETOROLAC TROMETH 30 MG/ML 1ML VIAL ONE (10:52)
[2024-11-12] MEDS ORDERED: MIDAZOLAM HCL 2MG/2ML 2ml VIAL (1mg/ml) ONE (10:52)
[2024-11-12] MEDS ORDERED: GLYCOPYRROLATE 0.2 MG/ML 1ML VIAL ONE (10:52)
[2024-11-12] MEDS ORDERED: fentaNYL CITRATE 100 MCG/2 ML VL ONE (11:09)
[2024-11-12] MEDS ORDERED: BUPIVACAINE 0.5% MPF INJ 30ML SDV IJ ONE (11:14)
[2024-11-12] MEDS ORDERED: LIDOCAINE W/ EPINEPHRINE 1% 20ML VIAL ONE (11:14)
[2024-11-12] MEDS ORDERED: ceFAZolin 1GM VL ONE (11:20)
--- NOTE | 2024-11-12 11:22 | DVHOP2 ---
Operative Report [id number] LEFT GLUTEAL ABSCESS I/D ABOVE ONE PACKING GAUZE EBL 2 CC NO COMPLICATIONS COREY JOHNSON MD Nov 12, 2024 11:22
--- NOTE | 2024-11-12 11:25 | DVHOP ---
DATE OF SURGERY: 11/12/2024 PREOPERATIVE DIAGNOSIS: Left gluteal abscess. POSTOPERATIVE DIAGNOSIS: Left gluteal abscess. PROCEDURE: I and D of left gluteal abscess. SURGEON: Franco Kyle MD RACING MANAGER: None ANESTHESIA: IV sedation DESCRIPTION OF PROCEDURE: The patient was prepped and draped in the usual sterile fashion. In the left upper lateral position, the abscess was drained out. Cultures were sent. Irrigation was performed and the packing gauze was applied with iodoform. Dressing was applied. The patient tolerated the procedure well. He was taken back to the recovery room in stable condition, with no complications. Franco Kyle MD RG/SAY TID: [id number] RECEIPT: [id number] cc: Kvng Dorantes
[2024-11-12] MEDS ORDERED: HYDROmorphone HCL 2 MG/ML VL/or syr IV PRN (11:45)
--- NOTE | 2024-11-12 14:23 | DVHPN2 ---
Subjective Patient denies any symptoms at this time. Reviewed: Care Plan, H&P, Labs, Medications Changes from previous H/P or p: No Changes General: Per HPI Musculoskeletal: other (Left gluteal pain) Objective Vitals Vital Signs Date Time Temp Pulse Resp B/P (MAP) Pulse Ox O2 Delivery O2 Flow Rate FiO2 11/12/24 13:00 98.0 61 14 113/78 (90) 98 98.0 11/12/24 11:23 Mask 7.0 98 Intake/Output Intake and Output 11/12/24 07:00 Intake Total 550 ml Output Total 600 ml Balance -50 ml Intake Oral 400 ml IV Total 150 ml Output Urine Total 600 ml # Voids 4 # Bowel Movements 1 General Appearance: Alert, Oriented X3, Cooperative, No acute distress HEENT: Atraumatic, PERRLA Lungs: Clear to auscultation, Normal air movement Cardiovascular: Normal S1, Normal S2 Abdomen: Normal bowel sounds, Soft, No tenderness, No hepatospenomegaly Rectal: Normal inspection Back: Flank Tenderness, Midline Tenderness Skin: Dry, Intact Psych/Mental Status: Mental status NL, Mood NL Medications Current Medications Medications Dose Ordered Sig/Ellie Route Start Time Stop Time Status Last Admin Dose Admin Clindamycin Phosphate 50 ml @ 50 mls/hr Q8HR IV 11/09/24 16:45 11/12/24 05:37 50 MLS/HR Acetaminophen/ Hydrocodone Bitart 1 tab Q4HP PRN PO 11/09/24 16:45 Ondansetron HCl 4 mg Q4HP PRN IV 11/09/24 16:45 Acetaminophen 650 mg Q6HP PRN PO 11/09/24 16:45 Morphine Sulfate 2 mg Q4HPRN PRN IV 11/09/24 16:45 Pantoprazole Sodium 40 mg DAILY IV 11/09/24 16:45 11/12/24 10:00 40 MG Saccharomyces Boulardii 250 mg DAILY PO 11/11/24 10:00 11/11/24 09:32 250 MG Ceftriaxone Sodium/Dextrose 50 ml @ 50 mls/hr DAILY IV 11/11/24 10:00 11/12/24 10:00 50 MLS/HR Laboratory Results Laboratory Tests 11/11/24 06:55 11/12/24 07:27 Urinalysis Test 11/09/24 17:29 Urine Color Light-yellow (Yellow) Urine Clarity Clear (Clear) Urine pH 6.5 (5.0-9.0) Urine Specific [place] 1.013 (1.001-1.035) Urine Protein Negative (Negative) Urine Ketones Negative (Negative) Urine Blood 2+ /uL (Negative) H Urine Nitrite Negative (Negative) Urine Bilirubin Negative (Negative) Urine Urobilinogen Normal mg/dL (Negative) Urine Leukocyte Esterase Negative /uL (Negative) Urine RBC 25 /hpf (0 - 3) Urine Microscopic WBC < 1 /HPF (0-3) Urine Squamous Epithelial Cells None seen /hpf (<5) Urine Bacteria None seen /hpf (None Seen) Urine Glucose Normal mg/dL (Normal) Microbiology Microbiology Date/Time Source Procedure Growth Status 11/10/24 05:30 Nose MRSA Screen - Final Complete 11/09/24 14:05 Blood Blood Culture - Preliminary NO GROWTH AFTER 72 HOURS OF INCUBATION. Resulted Labs and/or images reviewed: Labs reviewed by me Assessment/Plan Assessment/Plan Impression: -right gluteal abscess, growth of Staphylococcus aureus Plan: -events: Patient is status post I and D of gluteal wound. Patient was noted to have MRSA of the wound. -surgical consultation: Recommendations reviewed -continue antibiotic therapy with Rocephin and clindamycin -pain management -reassess for discharge in a.m. Total time spent with patient discussing and formulating plan of care: 35 minutes. This medical document was created using an electronic medical record system with [employer] dictation system. Although this document has been carefully reviewed, there may still be some phonetic and typographical errors. These areas are purely typographical due to imperfections of the software programs, and do not reflect any compromise in the patient's medical care. Plan discussed with: Patient, Other (RN) Date of Service: Nov 12, 2024 Billing Provider: PHIL LIZARRAGA NP Common Visit Codes: [id number] INP/OBS CARE(HIGH) PHIL LIZARRAGA NP Nov 12, 2024 14:23
[2024-11-13] VITALS (7 sets, daily range): BP systolic 95–119; BP diastolic 57–75; PULSE 57–65; RESP 17–18; TEMP 97.8–98.3; O2SAT 95–98
--- NOTE | 2024-11-13 13:47 | DVHPN2 ---
Progress Note Date Seen: Nov 13, 2024 Medical Necessity Reason Pt with a Central, PICC or Fol: No Objective vital signs Vital Sign Date Time Temp Pulse Resp B/P (MAP) Pulse Ox O2 Delivery O2 Flow Rate FiO2 11/13/24 09:00 98.1 57 18 107/57 (74) 98 98.1 11/13/24 08:00 Room Air* 0 21 Total Intake and Output 11/12/24 11/12/24 11/13/24 15:00 23:00 07:00 Intake Total 50 ml 805 ml Balance 50 ml 805 ml medications Current Medications Medications Dose Ordered Sig/Ellie Route Start Time Stop Time Status Last Admin Dose Admin Clindamycin Phosphate 50 ml @ 50 mls/hr Q8HR IV 11/09/24 16:45 11/13/24 05:16 50 MLS/HR Acetaminophen/ Hydrocodone Bitart 1 tab Q4HP PRN PO 11/09/24 16:45 Ondansetron HCl 4 mg Q4HP PRN IV 11/09/24 16:45 Acetaminophen 650 mg Q6HP PRN PO 11/09/24 16:45 Morphine Sulfate 2 mg Q4HPRN PRN IV 11/09/24 16:45 Pantoprazole Sodium 40 mg DAILY IV 11/09/24 16:45 11/13/24 09:53 40 MG Saccharomyces Boulardii 250 mg DAILY PO 11/11/24 10:00 11/13/24 09:53 250 MG Ceftriaxone Sodium/Dextrose 50 ml @ 50 mls/hr DAILY IV 11/11/24 10:00 11/13/24 09:53 50 MLS/HR laboratory and microbiology Laboratory Tests 11/12/24 07:27 11/11/24 06:55 Test 11/11/24 06:55 Range/Units Serum Glucose 84 74-106 mg/dL Microbiology Date/Time Source Procedure Growth Status 11/12/24 11:15 Buttock Left Gram Stain - Final Resulted 11/12/24 11:15 Buttock Left Anaerobic Culture - Preliminary Resulted 11/12/24 11:15 Buttock Left Aerobic Culture - Preliminary Resulted 11/09/24 14:05 Blood Blood Culture - Preliminary NO GROWTH AFTER 72 HOURS OF INCUBATION. Resulted Problem List/Assessment/Plan Problem List/Assessment/Plan AFEBRILE VSS LEFT GLUTEAL WOUND DRAINAGE LESS DC PACKING NO COMPLICATIONS CLEARED FOR DISCHARGE ABX AND WOUND CARE INSTRUCTIONS GIVEN NURSE AT BEDSIDE Plan discussed with: Patient, Other Dietary Evaluation Review Recommendations by RD: Protein Supplementation Comments: 1) Initiate Pro-Stat @ 30 mL bid 2) Initiate MVI @ 1 tb qd 3) Encourage optimal PO intake 4) Follow-up with surgery and cardiology 5) Continue to monitor I&O, labs, and skin integrity Expected Outcomes/Goals: 1) appetite and labs to improve 2) wound to improve 3) f/u in 3-5 days COREY JOHNSON MD Nov 13, 2024 13:47
[2024-11-13] MEDS ORDERED: TRAM-626 PO (13:54)
[2024-11-13] MEDS ORDERED: CLIN-203 PO (13:54)
--- NOTE | 2024-11-13 14:45 | DVHDS2 ---
Discharge Summary Date of Admission Nov 09, 2024 at 16:36 Date of Discharge: Nov 13, 2024 Admitting Diagnosis Left gluteal abscess Labs/Diagnostic Data: Laboratory Results Test 11/12/24 07:27 11/11/24 06:55 11/10/24 05:39 11/09/24 17:29 White Blood Count 6.6 10^3/uL (4.4-10.8) Red Blood Count 5.03 10^6/uL (4.5-5.90) Hemoglobin 15.6 g/dL (13.5-17.5) Hematocrit 44.5 % (41.0-53.0) Mean Corpuscular Volume 88.6 fL (80.0-100.0) Mean Corpuscular Hemoglobin 31.0 pg (28.0-32.0) Mean Corpuscular Hemoglobin Concent 35.0 g/dL (32.0-36.0) Red Cell Distribution Width 13.5 % (11.8-14.3) Platelet Count 330 10^3/uL (140-450) Mean Platelet Volume 8.1 fL (6.9-10.8) Neutrophils (%) (Auto) 61.5 % (37.0-80.0) Lymphocytes (%) (Auto) 22.6 % (10.0-50.0) Monocytes (%) (Auto) 9.6 % (0.0-12.0) Eosinophils (%) (Auto) 5.5 % (0.0-7.0) Basophils (%) (Auto) 0.8 % (0.0-2.0) Neutrophils # (Auto) 4.1 10 ^3/uL (1.6-8.6) Lymphocytes # (Auto) 1.5 10 ^3/uL (0.4-5.4) Monocytes # (Auto) 0.6 10 ^3/uL (0-1.3) Eosinophils # (Auto) 0.4 10 ^3/uL (0-0.8) Basophils # (Auto) 0.1 10 ^3/uL (0-0.2) Nucleated Red Blood Cells 0.1 % Prothrombin Time 10.9 sec (9.3-11.8) Prothrombin Time INR 1.03 (0.9-1.15) Activated Partial Thromboplast Time 31.8 SEC (24.5-34.5) Sodium Level 141 mmol/L (136-145) Potassium Level 4.3 mmol/L (3.5-5.1) Chloride Level 107 mmol/L (98-107) Carbon Dioxide Level 26 mmol/L (20-31) Anion Gap 8 (5-15) Blood Urea Nitrogen 11 mg/dL (9-23) Creatinine 0.96 mg/dL (0.700-1.30) Glomerular Filtration Rate Calc 101 mL/min (>90) BUN/Creatinine Ratio 11.5 (10.0-20.0) Serum Glucose 84 mg/dL (74-106) Calcium Level 9.9 mg/dL (8.7-10.4) Total Bilirubin 0.3 mg/dL (0.2-1.0) Aspartate Amino Transferase (AST) 28 U/L (<34) Alanine Aminotransferase (ALT) 30 U/L (7-40) Alkaline Phosphatase 69 U/L (46-116) Total Protein 6.1 g/dL (5.7-8.2) Albumin 3.8 g/dL (3.2-4.8) Urine Color Light-yellow (Yellow) Urine Clarity Clear (Clear) Urine pH 6.5 (5.0-9.0) Urine Specific [place] 1.013 (1.001-1.035) Urine Protein Negative (Negative) Urine Ketones Negative (Negative) Urine Blood 2+ /uL (Negative) Urine Nitrite Negative (Negative) Urine Bilirubin Negative (Negative) Urine Urobilinogen Normal mg/dL (Negative) Urine Leukocyte Esterase Negative /uL (Negative) Urine RBC 25 /hpf (0 - 3) Urine Microscopic WBC < 1 /HPF (0-3) Urine Squamous Epithelial Cells None seen /hpf (<5) Urine Bacteria None seen /hpf (None Seen) Urine Glucose Normal mg/dL (Normal) Test 11/09/24 14:05 Lactic Acid Level 0.8 mmol/L (0.4-2.0) Other Laboratory Tests 11/12/24 07:27 11/11/24 06:55 Brief Hx & Hospital Course: History of Present Illness José Rivas is a 44-year-old male with past medical history of gastritis, migraines, and hernia repair who presents to the ED with left gluteal pain due to a wound x5 days. Patient reports that he has he seen seen here recently last week with the same issue. Patient states that there is brown drainage coming out. He states that the pain is 5/10 aching and constant. Patient denies any recent trauma or injury, recent sick contacts, recent ingestion of spoiled food, recent travels, chest pain, shortness of breath, fever, chills, lightheadedness, weakness, dizziness, nausea, vomiting, diarrhea, or abdominal pain. Patient was patient was placed on empiric antibiotic therapy, with the patient was wound being positive for MRSA. Patient was placed on clindamycin. Surgical consultation was obtained given patient had persistent purulent drainage from wound. Patient underwent I and D yesterday. Discussion was made with surgeon today, who has cleared the patient to be discharged. Patient was to be continued on antibiotic therapy with clindamycin 300 mg p.o.3 times a day for seven days. Patient was also be provided pain management in the form of Ultram 50 mg p.o. daily. Patient was going to have a PCP. Patient will follow up with the discharge Clinic in one week. New dressing will be placed on the patient was today, for which he will keep dry and intact until his follow up appointment in one week. Patient was agreeable with discharge plan. All questions answered. Physical examination General: Alert and Oriented x3. No acute distress. Well-nourished. Eyes: EOMI. Anicteric. HENT: Moist mucous membranes. Lungs: Clear to auscultation bilaterally. No accessory muscle use. Cardiovascular: Regular rate and rhythm. No murmur. No JVD. Abdomen: Soft, non-tender and non-distended. No palpable masses. Extremities: No edema. Non-tender. Skin: No rashes or lesions. Warm. Left gluteal wound I&D. Site clean dry and intact. Neurologic: No focal neurological deficits. CN II-XII grossly intact, but not individually tested. Psychiatric: Cooperative. Appropriate mood and affect. Total time spent with patient discussing and formulating plan of care: 35 minutes. This medical document was created using an electronic medical record system with [employer] system. Although this document has been carefully reviewed, there may still be some phonetic and typographical errors. These areas are purely typographical due to imperfections of the software programs, and do not reflect any compromise in the patient's medical care. Condition at Discharge: Fair Final Diagnosis/Problems List Gluteal abscess with Staphylococcus Aureas Discharge Disposition: Home Discharge Instruct/Medications Diet: Regular Activity: No Restrictions, As Tolerated Follow Up/Referral: [facility]. Medications: Ultram 50mg po q8hrs for mod to severe pain Clindamycin 300mg po q8hrs x 7 days Probiotic OtC daily 36 Discharge Statement: "Patient was advised to return to the ER or call 911 if any headaches, dizziness, shortness of breath, chest pain, abdominal pain, bleeding, fevers, or worsening of medical condition. Patient was counseled about treatment plan, medications, possible side effects, patientverbalized understanding. All questions were answered to the best of my ability. This discharge took greater then 30 minutes in planning, reviewing documentation, counseling the patient, and discussing with other team members." ASSESSMENT ASSESSMENT Assessment Gluteal abscess with Staphylococcus Aureas Date of Service: Nov 13, 2024 Billing Provider: PHIL LIZARRAGA NP Common Visit Codes: 40002-UTX/OBS DISCH DAY >30min PHIL LIZARRAGA NP Nov 13, 2024 14:45
== END 2024-11-13 18:12 | disposition home or self-care (01) | DRG 364 ==
LOC: ER 09:51 → OVERFLOW 16:36 → WEST WING 22:00
PROVIDERS: ADMIT Nurse Practitioner Acute Care; ATTEND Nurse Practitioner Acute Care
PROC: 0J990ZZ Drainage of Buttock Subcutaneous Tissue and Fascia, Open Approach (ICD-10-PCS; principal; 2024-11-12 11:00)
DX: L02.31 Cutaneous abscess of buttock (principal); B95.7 Other staphylococcus as the cause of diseases classified elsewhere; L03.317 Cellulitis of buttock; G43.909 Migraine, unspecified, not intractable, without status migrainosus
CPT/HCPCS: 36415; 72192; 80048; 80053; 81001; 83605; 85025; 85610; 85730; 87040; 87070; 87075; 87077; 87081; 87186; 87205; G0378; J0690; J1885; J2250; J2405; J2470; J2704; J3490